=== PATIENT | male | born 1950 | race Caucasian/White ===

== ENCOUNTER 2016-12-29 22:15 | Emergency (ER) | payer MEDICARE, BC ==
[~2016-12-29] VITALS: Ht 170.2 cm; Wt 95.3 kg
[~2016-12-29 22:15] MED LIST: ADULT LOW DOSE81 MG PO; ALBUTEROL-1 PUFF/14. IN; ALDACTONE 25MG25 MG NG; ALDACTONE 25MG25 MG PO; ASPIRIN81 MG PO; ATORVASTATIN CA40 MG PO; ATROVENT H0.017 MG/A IH; ATROVENT IN; AZITHROMYCIN250 M1 PO; BISOPROLOL 5MG T5 MG PO; BUDESONIDE0.25 MG/2 IH; CARVEDILOL12.5 MG PO; CIALIS10 MG PO; CLOPIDOGREL75 M2 PO; COMBIVENT RESPI1 SPR IH; COUGH100 MG/5 M PO; COZAAR 50 MG TA50 MG OR; DIGITEK0.125 MG PO; DIGITEK125 MCG PO; ECOTRIN81 MG PO; EFFIENT10 MG PO; FLEXERIL10 MG PO; FUROSEMIDE 40MG40 M1 PO; FUROSEMIDE40 MG PO; GLIPIZIDE ER 5MG5 MG PO; GLIPIZIDE PO; GLUCOPHAGE500 MG PO; IPRATROPIUM 2.2.5 ML INH; LANOXIN0.125 MG PO; LEVITRA PO; LOSARTAN POTASS50 MG PO; MEDROL 4MG. DOSE4 MG PO; METFORMIN HYDR750 MG PO; METOPROLOL SUCC50 M1 PO; NITROGLYCERIN0.4 MG SL; NITROSTAT0.4 MG SL; OMNICEF 300 MG300 MG PO; ONGLYZA5 MG PO; OXYGEN XX; PANTOPRAZOLE SO40 M1 PO; PERCOGESIC1 TAB PO; PLAVIX 75MG TAB75 MG PO; PREDNISONE 20MG20 MG PO; PRINIVIL10 M1 PO; PROAIR HFA0.09 MG/AC IH; PROTONIX 40MG T40 MG PO; SERTRALINE 100100 MG PO; SOTALOL HCL120 MG PO; SOTALOL PO; SPIRONOLACTONE25 MG NG; SYMBICORT1 AE1 IH; TOPROL XL 50MG50 MG PO; TRAZADONE HYDR100 MG PO; TRAZODONE100 MG PO; TYLENOL ES500 M1 PO; VIAGRA50 MG PO; ZEBETA10 MG PO; ZOCOR40 MG PO; ZOFRAN ODT4 MG PO; ZOLOFT100 MG PO
[2016-12-29 22:55] VITALS: BP 151/86
[2017-01-25] MEDS ORDERED: ONGLYZA5 MG PO (22:59)
[2017-01-25] MEDS ORDERED: SOTALOL HCL160 MG PO (23:00)
[2017-01-25] MEDS ORDERED: LEADER MELATONIN5 MG PO (23:00)
[2017-01-25] MEDS ORDERED: GLIPIZIDE ER 5MG5 MG PO (23:01)
[2017-01-25] MEDS ORDERED: FUROSEMIDE40 MG PO (23:01)
[2017-01-25] MEDS ORDERED: METFORMIN1000 MG PO (23:01)
[2017-01-25] MEDS ORDERED: ASPIR-LOW81 MG PO (23:02)
[2017-01-25] MEDS ORDERED: ACETAMINOPHEN500 M3 PO (23:02)
[2017-01-25] MEDS ORDERED: LOSARTAN POTASS50 MG PO (23:03)
[2017-01-25] MEDS ORDERED: PANTOPRAZOLE SO40 MG PO (23:04)
[2017-01-25] MEDS ORDERED: SERTRALINE 100100 MG PO (23:04)
[2017-01-25] MEDS ORDERED: SYMBICORT1 AE1 IH (23:05)
[2017-01-25] MEDS ORDERED: INCRUSE EL62.5 MCG/A IH (23:06)
[2017-01-25] MEDS ORDERED: ALBUTEROL-1 PUFF/14. IN (23:08)
[2017-01-25] MEDS ORDERED: PROAIR HFA0.09 MG/AC IH (23:08)
[2017-01-27] MEDS ORDERED: DEMADEX20 MG PO (09:13)
[2017-01-27] MEDS ORDERED: ALDACTONE 25MG25 MG PO (09:14)
== END 2016-12-29 22:56 | disposition left against medical advice (07) ==
LOC: ER 22:15
DX: Z53.29 Procedure and treatment not carried out because of patient's decision for other reasons (principal)

== ENCOUNTER 2017-02-08 14:29 | Observation (INO) | payer MEDICARE, BC ==
[~2017-02-08] VITALS: Ht 170.2 cm; Wt 88.6 kg
[~2017-02-08 14:29] MED LIST changes: +ACETAMINOPHEN500 M3 PO; +ASPIR-LOW81 MG PO; +DEMADEX20 MG PO; +INCRUSE EL62.5 MCG/A IH; +LEADER MELATONIN5 MG PO; +METFORMIN1000 MG PO; +PANTOPRAZOLE SO40 MG PO; +SOTALOL HCL160 MG PO
[2017-02-08 14:30] VITALS: BP 112/67
[2017-02-08 14:47] LABS: HEMOGLOBIN 11.7 g/dL (14.1-18.0); LYMPH # 0.9 K/mm3 (0.7-4.5); LYMPH % 10.9 % (10-50)
--- NOTE | 2017-02-08 14:48 | Emergency Room Report ---
History of Present Illness Time Seen by 1430 Presenting Problem in Triage Pt arrived:Wheelchair Presenting Problem:NAVIGATED OWN W/C INTO ED. 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 N Clinical Suspician of Infection? N Mental Status: 1 - Regular (Normal Baseline) Sepsis Risk:Low Sepsis Risk Have you (or family members/close friends) recently traveled outside the [place]? N If Yes, where/when: Have you had exposure to infectious disease within the past month? N TB? Other? Specify: Source patient, RN notes reviewed, family Exam Limitations no limitations Comment This is a 67-year-old male with a past medical history significant for hypertension, hyperlipidemia, chronic obstructive pulmonary disease, coronary artery disease who presents to the emergency department for an episode of sternal nonradiating chest pain that occurred less than 1 hour ago. It occurred while he was at rest in the doctor's office. He was seeing his primary care provider for a routine checkup. He has not had any increase in cough or vomiting over the last several days. However when he was in the office today he became diaphoretic and nauseous with this chest pain. He took a subungual nitroglycerin and his symptoms have now resolved. He denies any current shortness of air. No recent fevers. Currently chest pain-free. ALLERGIES Coded Allergies: Sulfa (Sulfonamide Antibiotics) (Intermediate, I-RASH 02/08/17) fluticasone (From ADVAIR DISKUS) (Mild, NA-NAUSEA/VOMITING 02/08/17) salmeterol (From ADVAIR DISKUS) (Mild, NA-NAUSEA/VOMITING 02/08/17) Home Medications Active Scripts TORSEMIDE (DEMADEX 20MG) 40 MG PO DAILY 30 Days Ref 5 Prov: 01/27/17 Spironolactone (Aldactone) 25 MG PO BID 30 Days Ref 5 Prov: 04/05/17 Reported Medications SAXAGLIPTIN HCL (Onglyza) 5 MG PO QHS SOTALOL HCL (Sotalol) 160 MG PO BID METFORMIN HCL (Metformin) 1,000 MG PO BID GLIPIZIDE (Glipizide ER) 5 MG PO DAILY Losartan Potassium (Losartan 50MG) 50 MG PO DAILY Pantoprazole Sodium (Pantoprazole 40MG) 40 MG PO DAILY Sertraline Hydrochloride (Sertraline 100MG) 100 MG PO DAILY BUDESONIDE/FORMOTEROL FUMARATE (Symbicort 160-4.5 Mcg Inhaler) 2 PUFF IH BID UMECLIDINIUM BROMIDE (Incruse Ellipta) 1 PUFF IH DAILY Melatonin 5 MG PO DAILY ASPIRIN (Aspirin) 81 MG PO DAILY Acetaminophen (Acetaminophen Extra Strength) 500 MG PO Q6HP PRN PAIN Albuterol Sulfate (Proair Hfa) 1 PUFF IH Q6HP PRN COPD Device (Oxygen (Concentrator)) 1 UNIT XX UD CLOPIDOGREL BISULFATE (Clopidogrel) 75 MG PO DAILY #90 History Medical History General CAD? Yes Angina: Yes [place]: Yes Hypertension? Yes Hyperlipidemia? Yes CHF? Yes DVT? Yes PE? Yes COPD? Yes Asthma? No Anemia? No GERD? No Gastric ulcers? No GI Bleed? No Hernia? No Thyroid Problems? No Hypothyroidism? No CVA? No Seizures? No Diabetes? Yes Insulin Dependent: No Insulin Pump: No Home FSBS? No Renal Insuffiency? No End Stage Renal Disease? No UTI? No Stones? No BPH? No GB Disease: No Nephritic Syndrome? No Asplenia? No Hepatitis? No Sickle Cell Disease? No Arthritis? Yes Migraines? No Cataracts? No Glaucoma? No MRSA? No HIV? No TB? No Anxiety? No Depression? No Cancer? Yes Site: SKIN More? No Immunization Hx Ped.Immunizations UTD Yes DT/Tetanus Unknown Flu 2015-FSN Pneumonia Received In Past Surgical Hx Previous Surgery?Y BACK SURGERY CARPAL TUNNEL-RIGHT VASECTOMY 07/09 CARDIAC STENT 12/09 CARDIAC STENTS PROSTATE SX 5 STENTS Family History Family Hx Diabetes Yes CAD Yes Hypertension Yes Hyperlipidemia Yes Cancer No TB No Social History Smoking Hx Smoker: Never Smoker Tobacco: No Type N/A Are you/the child exposed to second-hand smoke: No Alcohol Alcohol: No Review of Systems All Other Systems Reviewed and Negative Physical Exam Vital Signs Vital Signs Date Time Temp Pulse Resp B/P Pulse O2 O2 Flow FiO2 Ox Delivery Rate 02/08 1458 81 02/08 1430 98.3 7 18 112/67 91 4 General Appearance normal appearance, WD/WN Neck normal inspection, non-tender, supple, full range of motion Respiratory Status Yes: chest symmetrical, non tender chest. No: respiratory distress. Lung Sounds bilateral: normal breath sounds, lungs clear. Cardiovascular normal exam, regular rate/rhythm, no peripheral edema, no gallop, no JVD, no murmur, no rub, normal peripheral pulses Gastrointestinal normal bowel sounds, normal exam, non tender Extremities non-tender, normal range of motion, normal inspection Neurologic alert, no motor/sensory deficits, oriented x 3 Skin intact, normal color, warm/dry Medical Decision Making LABS/Meds/Orders Pt receiving controlled substance in ED? No Results/Orders Laboratory Tests 02/08/17 1640: Troponin I < 0.17 H 02/08/17 1439: Sodium 138, Potassium 4.9, Chloride 96 L, Carbon Dioxide 36 H, BUN 38 H, Creatinine 1.7 H, Estimated Creat Clear 52, Estimated GFR (MDRD) 40, Glucose 256 H, Calcium 9.0, Total Bilirubin 0.4, AST 11 L, ALT 22, Alkaline Phosphatase 115, Creatine Kinase 27 L, CK-MB (CK-2) Rel Index 2.6, CK and CKMB Interp 0.7, Troponin I < 0.02, Total Protein 7.9, Albumin 3.9, Globulin 4.0 H, Albumin/Globulin Ratio 1.0 L, WBC 8.4, RBC 3.65 L, Hgb 11.7 L, Hct 36.2 L, MCV 99.0 H, RDW 13.1, Plt Count 289, MPV 6.4 L, Gran % 83.3 H, Gran # 7.0, Lymphocytes % 10.9, Monocytes % 4.0, Eosinophils % 1.5, Basophils % 0.2, Lymphocytes # 0.9, Monocytes # 0.3, Eosinophils # 0.1, Basophils # 0.0, PUBS MCHC 32.3, MCH 31.9 H Current Medication Orders Sig/Martin Start time Last Medication Dose Route Stop Time Status Admin Aspirin 243 MG ONCE ONE 02/08 1500 DC 02/08 PO 02/08 1501 1457 Aspirin 0 .STK-MED ONE 02/08 1456 DC .ROUTE Sodium Chloride 10 ML PRN PRN 02/08 1445 AC IV 02/09 1436 Orders Procedure Date/time Status Decision to admit 02/08 1722 Active TROPONIN I 02/08 1545 Complete ELECTROCARDIOGRAM REQUEST 02/08 1438 Active CHEST-PORTABLE 02/08 1438 Active IV SALINE LOCK 02/08 1438 Active OXYGEN PER NURSE 02/08 1438 Active MOTO MIX OPERATOR 02/08 1438 Active CBC WITH AUTO DIFF 02/08 1438 Complete CARDIAC ENZYMES 02/08 1438 Complete CHEM 12 PROFILE 02/08 1438 Complete 12 LEAD EKG-LYLE (INITIAL) 02/08 1430 Active CM/EKG CM/EKG EKG rate (78), NSR, no evid. of ischemic chgs, normal QRS, normal NV, long QT XRAY/CT/US XRAY/CT/US XRAY chest XR interpretation by reviewed by me Xray Results normal/NAD Departure Departure Disposition Still a Patient Clinical Impression Primary Impression: NSTEMI (non-ST elevated myocardial infarction) Condition STABLE Referrals Alexis Thorpe MD (Family) ED Critical Care Critical Care Yes Time spent 30-74 min Vital system(s) involved: Circulatory Failure I was present at bedside for Coordinating pt's care, Interpreting EKGs/Strips , During my initial exam, Reviewing lab results, Reviewing old records, Discussing pt condition, For re-examinations, Examining radiographs If Critical Care minutes are documented, the time involved in the performance of seperately reportable procedures was not counted toward critical care time documented. I directly delivered medical care to this critically ill and/or injured patient. Timely evaluation and treatment was necessary to address the significant organ system(s) dysfunction present in this patient. Comments Patient remains chest pain-free while in the emergency department. Electrocardiogram shows no signs of acute ischemia. He is given 3 more baby aspirin as he arty had 1 baby aspirin today. Initial troponin is negative. He is seen by cardiology PA, Aroldo Galvan, who suggests repeat troponin and discharge home if negative. Unfortunately his second troponin is elevated. I contacted Aroldo again and he recommended Lovenox which I have ordered in the emergency department and admission for further evaluation. I discussed his case with Dr. Rollins as well who will admit for further management. at [id number]
[2017-02-08 15:11] LABS: BUN 38 mg/dL (7-18)
[2017-02-08 15:13] LABS: GFR (ESTIMATED) 40 ML/MIN (>60)
[2017-02-08 18:05] VITALS: BP 121/60
[2017-02-08] MEDS ORDERED: COMBIVENT RESPI1 SPR IH (18:17)
[2017-02-08 18:55] VITALS: BP 110/50
[2017-02-08 19:55] VITALS: BP 113/55
[2017-02-08 20:05] VITALS: BP 113/55
--- NOTE | 2017-02-08 20:51 | HISTORY AND PHYSICAL REPORT ---
Demographics: Admit date: 02/08/17 Chief complaint: Chest pain PRIMARY DIAGNOSIS: NSTEMI Allergies: Coded Allergies: Sulfa (Sulfonamide Antibiotics) (Intermediate, I-RASH 02/08/17) fluticasone (From ADVAIR DISKUS) (Mild, NA-NAUSEA/VOMITING 02/08/17) salmeterol (From ADVAIR DISKUS) (Mild, NA-NAUSEA/VOMITING 02/08/17) History of present illness: History of present illness: 67-year-old white male with long history of coronary artery disease, recentcatheter-based intervention for chest pain with non-syncopal disease and ongoing COPD with pulmonary hypertensionwho presented to my office today for routine followup after his recent admission left heart catheterization. In the office he began to have substernal chest pain associate with nausea and retching. He was transferred to the emergency department where serial enzymes showed elevation in troponin levels from baseline after the second reading and he was admitted to hospital with diagnoses of non-stemi. Past medical history: Family HX Diabetes Yes CAD Yes Hypertension Yes Hyperlipidemia Yes Cancer No TB No Immunization HX Ped.Immunizations UTD Yes DT/Tetanus Unknown Flu 2015-FSN Pneumonia Received In Past TB Test in last year No General CAD? Yes Angina: Yes ND: Yes Hypertension? Yes Hyperlipidemia? Yes CHF? Yes DVT? Yes PE? Yes COPD? Yes Asthma? No Anemia? No GERD? No Gastric ulcers? No GI Bleed? No Hernia? No Thyroid Problems? No Hypothyroidism? No CVA? No Seizures? No Diabetes? Yes Insulin Dependent: No Insulin Pump: No Home FSBS? No Renal Insuffiency? No UTI? No Stones? No BPH? No GB Disease: No Nephritic Syndrome? No Asplenia? No Hepatitis? No Sickle Cell Disease? No Arthritis? Yes Migraines? No Cataracts? No Glaucoma? No MRSA? No HIV? No TB? No Anxiety? No Depression? No Cancer? Yes Site: SKIN More? No Past Surgical HX Previous Surgery?Y BACK SURGERY CARPAL TUNNEL-RIGHT VASECTOMY 07/09 CARDIAC STENT 12/09 CARDIAC STENTS PROSTATE SX 5 STENTS Current home meds: Active Scripts TORSEMIDE (DEMADEX 20MG) 40 MG PO DAILY 30 Days Ref 5 Prov: 01/27/17 Spironolactone (Aldactone) 25 MG PO BID 30 Days Ref 5 Prov: 01/27/17 Reported Medications SAXAGLIPTIN HCL (Onglyza) 5 MG PO QHS SOTALOL HCL (Sotalol) 160 MG PO BID METFORMIN HCL (Metformin) 1,000 MG PO BID GLIPIZIDE (Glipizide ER) 5 MG PO DAILY Losartan Potassium (Losartan 50MG) 50 MG PO DAILY Pantoprazole Sodium (Pantoprazole 40MG) 40 MG PO DAILY Sertraline Hydrochloride (Sertraline 100MG) 100 MG PO DAILY BUDESONIDE/FORMOTEROL FUMARATE (Symbicort 160-4.5 Mcg Inhaler) 2 PUFF IH BID UMECLIDINIUM BROMIDE (Incruse Ellipta) 1 PUFF IH DAILY ALBUTEROL/IPRATROPIUM (Combivent Respimat Inhal [place]) 1 PUFF IH BID #4 Melatonin 5 MG PO DAILY ASPIRIN (Aspirin) 81 MG PO DAILY Acetaminophen (Acetaminophen Extra Strength) 500 MG PO Q6HP PRN PAIN Albuterol Sulfate (Proair Hfa) 1 PUFF IH Q6HP PRN COPD Device (Oxygen (Concentrator)) 1 UNIT XX UD CLOPIDOGREL BISULFATE (Clopidogrel) 75 MG PO DAILY #90 Social Hx: Smoking HX Tobacco No Type N/A Are you/the child exposed to second-hand smoke: No Alcohol Alcohol: No Hx of Drug Use Drug Use? No Patien't marital status is single Review of systems: Constitutional No: chills, diaphoresis, fever. Ears, Nose, Mouth, Throat No no symptoms reported Respiratory shortness of breath, SOB with excertion. Cardiovascular see HPI Gastrointestinal/Abdominal see HPI Genitourinary No: see HPI. Musculoskeletal No: no symptoms reported. Neurological No: see HPI. Exam: Lab data for last 24 hours: Laboratory Tests 02/08/17 1930: Troponin I < 0.02 02/08/17 1640: Troponin I < 0.17 H 02/08/17 1439: Sodium 138, Potassium 4.9, Chloride 96 L, Carbon Dioxide 36 H, BUN 38 H, Creatinine 1.7 H, Estimated Creat Clear 52, Estimated GFR (MDRD) 40, Glucose 256 H, Calcium 9.0, Total Bilirubin 0.4, AST 11 L, ALT 22, Alkaline Phosphatase 115, Creatine Kinase 27 L, CK-MB (CK-2) Rel Index 2.6, CK and CKMB Interp 0.7, Troponin I < 0.02, Total Protein 7.9, Albumin 3.9, Globulin 4.0 H, Albumin/Globulin Ratio 1.0 L, WBC 8.4, RBC 3.65 L, Hgb 11.7 L, Hct 36.2 L, MCV 99.0 H, RDW 13.1, Plt Count 289, MPV 6.4 L, Gran % 83.3 H, Gran # 7.0, Lymphocytes % 10.9, Monocytes % 4.0, Eosinophils % 1.5, Basophils % 0.2, Lymphocytes # 0.9, Monocytes # 0.3, Eosinophils # 0.1, Basophils # 0.0, PUBS MCHC 32.3, MCH 31.9 H Admission vital signs: 1ST Vital Signs Result Date Time Pulse Ox 91 02/08 1430 B/P 112/67 02/08 1430 O2 Flow Rate 4 02/08 1430 Temp 98.3 02/08 1430 Pulse 7 02/08 1430 Resp 18 02/08 1430 O2 Delivery OXYGEN 02/08 1801 Additional information: Alert, in mild distress. Lungs are clear, heart rate regular with previously noted murmur. On oxygen. Perfusion is intact. Patient actively vomiting in the office Plan: Problem List 1. Non-STEMI (non-ST elevated myocardial infarction) 2. Cardiomyopathy 3. Acute dyspnea Plan: Admit to hospital.Follow serial enzymes. Cardiology reevaluation is indicated. at 2050
--- NOTE | 2017-02-08 21:59 | PHARMACY CLINIC NOTE ---
Patient Demographics Patient Demographics Admission date: 02/08/17 Date: 02/08/17 Time: 2157 Allergies Coded Allergies: Sulfa (Sulfonamide Antibiotics) (Intermediate, I-RASH 02/08/17) fluticasone (From ADVAIR DISKUS) (Mild, NA-NAUSEA/VOMITING 02/08/17) salmeterol (From ADVAIR DISKUS) (Mild, NA-NAUSEA/VOMITING 02/08/17) HEIGHT- FT: 5 IN: 7.00 K.593 VTE General Information Labs: Laboratory Tests 02/08 1439 Hematology Hgb (14.1 - 18.0 g/dL) 11.7 L Hct (42.0 - 52.0 %) 36.2 L Plt Count (142 - 424 K/mm3) 289 Disclaimer The following section includes nursing documentation that has been pulled in for pharmacy review. Patient's VTE score: 3 Patient's VTE Risk: LOW RISK Clinical trial participant? No VTE prophylaxis [id number] VTE prophylaxis ordered? Yes Type of prophylaxis/treatment: JT Mcpherson at [phone]
[2017-02-08 23:49] VITALS: BP 150/53
[2017-02-09 04:33] VITALS: BP 124/61
--- NOTE | 2017-02-09 04:50 | RADIOLOGY REPORT PS360 ---
CHEST-PORTABLE HISTORY: Chest pain CP ORDERING PHYSICIAN: Artie Pink MD PATIENT AGE: 67 years COMPARISON: 01/25/2017 FINDINGS: Mild cardiomegaly with mild pulmonary venous congestion. The mary are somewhat prominent. Mild hyperinflation. No lobar consolidation or collapse. IMPRESSION: Mild CHF with COPD.
[2017-02-09 07:11] LABS: LYMPH # 1.3 K/mm3 (0.7-4.5); LYMPH % 18.6 % (10-50)
[2017-02-09 07:17] LABS: BUN 33 mg/dL (7-18); GFR (ESTIMATED) 46 ML/MIN (>60)
--- NOTE | 2017-02-09 07:49 | CONSULT NOTE ---
Standard Demographics Patient Demo Date of Consultation: 02/09/17 Referring Provider: Alexis Goel MD Reason for Consultation: Elevated troponin PRIMARY DIAGNOSIS: NSTEMI Problem list Problem list: 1. Coronary artery disease A. History of 2 coronary stents to the RIGHT coronary artery 1998 B. Coronary disease with stents to left anterior descending in November 2014 and LEFT main in June 2015 C. Cardiomyopathy with EF of 35-40% with resolution of cardiomyopathy by echocardiogram 12/2015 D. Cardiac cath in November 2015 showing patent stents E. Right and left heart cath, 01/2017, Moderate disease of Ramus and LAD with severe pulmonary HTN (Pulmonary artery occlusion pressure of 45 mm Hg). Medical therapy recommended with maximization of diuretics. 2. Diabetes mellitus 3. Erectile dysfunction secondary to medical therapy and peripheral vascular disease 4. Pulmonary hypertension A. RIGHT heart cath, June 2015 showing improvement of pulmonary artery pressure from 50 mmHg down to 15 mmHg due to diuretic therapy 5. History of prostate cancer surgery in [place] 6. Ongoing tobacco use 7. Multiple surgeries including back surgery, vasectomy and carpal tunnel surgery. 8. History of nonsustained ventricular tachycardia, controlled on sotalol therapy. History of present illness: History of present illness: 67-year-old white male with long history of coronary artery disease, recentcatheter-based intervention for chest pain with non-syncopal disease and ongoing COPD with pulmonary hypertensionwho presented to my office today for routine followup after his recent admission left heart catheterization. In the office he began to have substernal chest pain associate with nausea and retching. He was transferred to the emergency department where serial enzymes showed elevation in troponin levels from baseline after the second reading and he was admitted to hospital with diagnoses of non-stemi. The above per Dr. Goel. Patient was seen in the emergency department yesterday due to the above symptoms. He described his chest pain as brief and sharp in duration and left- sided. Patient became diaphoretic after taking sublingual nitroglycerin in order to try and treat his chest pains. Follow-up troponins after admission have been within the normal range. He denies any chest pain, pressure, tightness or shortness of breath exacerbation overnight. Cardiology consulted for further recommendations. Past Medical History: General: Hypertension Yes CVA No Seizures No TB No COPD Yes Asthma No Diabetes Yes Insulin Dependent No Insulin Pump No Angina Yes ME Yes Hyperlipidemia Yes Cancer Yes Ulcers No MRSA No GB Disease No Other ENLARGED PROSTATE Past Surgical HX: Previous Surgery?Y BACK SURGERY CARPAL TUNNEL-RIGHT VASECTOMY 07/09 CARDIAC STENT 2 CARDIAC STENTS PROSTATE SX 5 STENTS Allergies Coded Allergies: Sulfa (Sulfonamide Antibiotics) (Intermediate, I-RASH 02/08/17) fluticasone (From ADVAIR DISKUS) (Mild, NA-NAUSEA/VOMITING 02/08/17) salmeterol (From ADVAIR DISKUS) (Mild, NA-NAUSEA/VOMITING 02/08/17) Home medications: Active Scripts TORSEMIDE (DEMADEX 20MG) 40 MG PO DAILY 30 Days Ref 5 Prov: 01/27/17 Spironolactone (Aldactone) 25 MG PO BID 30 Days Ref 5 Prov: 01/27/17 Reported Medications CLOPIDOGREL BISULFATE (Clopidogrel) 75 MG PO DAILY #90 TAB SAXAGLIPTIN HCL (Onglyza) 5 MG PO QHS Melatonin 5 MG PO QHS SOTALOL HCL (Sotalol) 160 MG PO BID METFORMIN HCL (Metformin) 1,000 MG PO BID GLIPIZIDE (Glipizide ER) 5 MG PO DAILY Aspirin (Aspir-Low) 81 MG PO DAILY Acetaminophen (Acetaminophen Extra Strength) 500 MG PO Q6HP PRN PAIN Losartan Potassium (Losartan 50MG) 50 MG PO DAILY Pantoprazole Sodium (Pantoprazole 40MG) 40 MG PO DAILY Sertraline Hydrochloride (Sertraline 100MG) 100 MG PO DAILY BUDESONIDE/FORMOTEROL FUMARATE (Symbicort 160-4.5 Mcg Inhaler) 2 PUFF IH BID UMECLIDINIUM BROMIDE (Incruse Ellipta) 1 PUFF IH DAILY Albuterol Sulfate (Proair Hfa) 1 PUFF IH Q6HP PRN BREATHING ALBUTEROL/IPRATROPIUM (Combivent Respimat Inhal [place]) 1 PUFF IH QID #4 Device (Oxygen (Concentrator)) 1 UNIT XX UD Current Medications: Current Medications Enoxaparin Sodium 90 MG DAILY SC Nicotine 21 MG DAILYP PRN TD Enoxaparin Sodium 0 .STK-MED ONE SC (DC) Enoxaparin Sodium 90 MG ONCE ONE SC (DC) Aspirin 243 MG ONCE ONE PO (DC) Aspirin 0 .STK-MED ONE .ROUTE (DC) Sodium Chloride 10 ML PRN PRN IV Immunization HX Ped.Immunizations UTD Yes DT/Tetanus Unknown Flu 2016-FSN Pneumonia RECEIVED IN PAST TB Test in last year No Family history Family HX Family Hx Insignificant No Diabetes Yes CAD Yes Hypertension Yes Hyperlipidemia Yes Cancer No TB No Social Hx: Smoking HX Tobacco No Type N/A Are you/the child exposed to second-hand smoke: No Alcohol Alcohol: No Hx of Drug Use Drug Use? No Review of systems: Constitutional weakness. Respiratory see HPI, shortness of breath, SOB with excertion. Cardiovascular see HPI, chest pain Gastrointestinal/Abdominal see HPI, nausea, vomiting Genitourinary No: no symptoms reported. Musculoskeletal back pain, joint pain. Neurological No: no symptoms reported. Exam: Admission Vital Signs: 1ST Vital Signs Result Date Time Pulse Ox 91 02/08 1430 B/P 112/67 02/08 1430 O2 Flow Rate 4 02/08 1430 Temp 98.3 02/08 1430 Pulse 7 02/08 1430 Resp 18 02/08 1430 O2 Delivery OXYGEN 02/08 1801 Last Vital Signs: Vital Signs Result Date Time O2 Flow Rate 4 02/09 0630 Pulse Ox 99 02/09 0433 B/P 124/61 02/09 0433 O2 Delivery OXYGEN 02/09 0433 Temp 97.8 02/09 0433 Pulse 69 02/09 0433 Resp 20 02/09 0433 Exam General appearance: alert, awake, no acute distress Neck: no JVD Cardiovascular: regular rate & rhythm Respiratory: diminished breath sounds ABD: soft, no tenderness Extremities: moves all, no peripheral edema Neuro: alert, intact, oriented Laboratory data: Laboratory Tests 02/09/17 0624: Sodium 139, Potassium 4.2, Chloride 98, Carbon Dioxide 40 H, BUN 33 H, Creatinine 1.5 H, Estimated Creat Clear 58, Estimated GFR (MDRD) 46, Glucose 135 H, Calcium 9.1, Troponin I < 0.02, WBC 7.0, RBC 3.37 L, Hgb 11.0 L, Hct 33.2 L, MCV 98.7 H, RDW 13.0, Plt Count 263, MPV 5.4 L, Gran % 74.7, Gran # 5.2, Lymphocytes % 18.6, Monocytes % 5.3, Eosinophils % 1.1, Basophils % 0.3, Lymphocytes # 1.3, Monocytes # 0.4, Eosinophils # 0.1, Basophils # 0.0, PUBS MCHC 33.2, MCH 32.7 H 02/09/17 0015: Troponin I 0.02 02/08/17 1930: Troponin I < 0.02 02/08/17 1640: Troponin I < 0.17 H 02/08/17 1439: Sodium 138, Potassium 4.9, Chloride 96 L, Carbon Dioxide 36 H, BUN 38 H, Creatinine 1.7 H, Estimated Creat Clear 52, Estimated GFR (MDRD) 40, Glucose 256 H, Calcium 9.0, Total Bilirubin 0.4, AST 11 L, ALT 22, Alkaline Phosphatase 115, Creatine Kinase 27 L, CK-MB (CK-2) Rel Index 2.6, CK and CKMB Interp 0.7, Troponin I < 0.02, Total Protein 7.9, Albumin 3.9, Globulin 4.0 H, Albumin/Globulin Ratio 1.0 L, WBC 8.4, RBC 3.65 L, Hgb 11.7 L, Hct 36.2 L, MCV 99.0 H, RDW 13.1, Plt Count 289, MPV 6.4 L, Gran % 83.3 H, Gran # 7.0, Lymphocytes % 10.9, Monocytes % 4.0, Eosinophils % 1.5, Basophils % 0.2, Lymphocytes # 0.9, Monocytes # 0.3, Eosinophils # 0.1, Basophils # 0.0, PUBS MCHC 32.3, MCH 31.9 H Plan: Assessment: 1. Elevated troponin with concern for NSTEMI. Likely related to demand ischemia from severe pulmonary hypertension. Currently asymptomatic. 2. Known coronary disease, clinically stable on medical therapy. 3. Severe pulmonary hypertension 4. History of nonsustained ventricular tachycardia controlled on sotalol therapy Recommendations: 1. Obtain a BNP 2. No planned intervention for CAD. 3. Recommend consult Dr. Flood for recommendations regarding severe pulmonary hypertension. Consider Right heart cath to follow up on pulmonary artery pressure and response to change in diuretic therapy if indicated. at 1452
[2017-02-09 07:52] VITALS: BP 125/73
[2017-02-09 08:24] VITALS: BP 125/73
--- NOTE | 2017-02-09 08:44 | ACUTE CARE PROGRESS NOTE (QUA) ---
Progress Notes Subjective Date 02/09/17 Time 0750 Note Patient is sitting on the side of bed. No further chest pain through the night. Cardiology was consulted who feels symptoms are likely related to his severe pulmonary hypertension. Alert and oriented x 3. Rate and rhythm regular. No edema. Pulses 2+ bilaterally. LS diminished throughout. Patient/family reports: feeling better Nursing reports: no complaints Objective Findings Last VS-Temp:98.0 B/P:125/73 Pulse:78 Resp:20 SaO2:95 OXYGEN Last weight lbs:195 oz:5 K.593 Method:Bed Scales Reviewed: medications, vital signs, lab results Assessment/Plan Problem List 1. Cardiomyopathy 2. Acute dyspnea 3. Chest pain Patient condition Improving Plan: initiate discharge plan This inpt stay is expected to cross 2 MNs from start of care No Comments: Patient has an isolated elevated troponin and was NOT positive for NSTEMI. Symptoms are likely related to his severe pulmonary HTN. Will consult Dr. Flood. May d/c later today if cleared by Dr. Flood for outpatient FU. at 0844
--- NOTE | 2017-02-09 14:13 | CONSULT NOTE ---
Standard Demographics Patient Demo Date of Consultation: 02/09/17 Referring Provider: Alexis Goel MD Reason for Consultation: COPD exacerbation, chest pain PRIMARY DIAGNOSIS: COPD exacerbation due to left heart failure (diastolic) Allergies: Coded Allergies: Sulfa (Sulfonamide Antibiotics) (Intermediate, I-RASH 02/08/17) fluticasone (From ADVAIR DISKUS) (Mild, NA-NAUSEA/VOMITING 02/08/17) salmeterol (From ADVAIR DISKUS) (Mild, NA-NAUSEA/VOMITING 02/08/17) History of present illness: History of present illness: Chief complaint: "I couldn't breathe." Mr. Mathis is a 67-year-old man who has very severe chronic obstructive pulmonary disease and coronary artery disease complicated by congestive heart failure causing pulmonary hypertension. I initially saw him in August because of progressive shortness of breath over several years and ordered pulmonary function studies and a CT scan of the chest. He came back in late October to review the results and we added Incruse to Symbicort and Combivent to see if that would ease dyspnea. We also ordered pulmonary rehabilitation. In the interim, he had been hospitalized earlier this month for chest pain and increased shortness of breath associated with an apparent NSTEMI. A RIGHT and LEFT heart catheterization showed widely patent stents and no acute occlusion. Ejection fraction was 50 percent and the LEFT ventricular end-diastolic pressure was 40. He was diuresed and improved but came back in to Dr. Chirinos's office yesterday for a routine follow-up visit. Mr. Mathis told me that he had been feeling relatively well since the initial discharge and the severe shortness of breath was at least stable. While in the office, he suddenly developed substernal chest pain followed by nausea and profound sweating. He took a sublingual nitroglycerin and the symptoms subsided. He was admitted here and, based upon laboratory data and an electrocardiogram, it does not appear that he had a significant coronary event. He feels much better and is ready to go home. At baseline, he is breathless with ADL's. Past medical history: Family HX Diabetes Yes CAD Yes Hypertension Yes Hyperlipidemia Yes Cancer No TB No Immunization HX Ped.Immunizations UTD Yes DT/Tetanus Unknown Flu 2015-FSN Pneumonia Received In Past TB Test in last year No General CAD? Yes Angina: Yes AL: Yes Hypertension? Yes Hyperlipidemia? Yes CHF? Yes DVT? Yes PE? Yes COPD? Yes Asthma? No Anemia? No GERD? No Gastric ulcers? No GI Bleed? No Hernia? No Thyroid Problems? No Hypothyroidism? No CVA? No Seizures? No Diabetes? Yes Insulin Dependent: No Insulin Pump: No Home FSBS? No Renal Insuffiency? No UTI? No Stones? No BPH? No GB Disease: No Nephritic Syndrome? No Asplenia? No Hepatitis? No Sickle Cell Disease? No Arthritis? Yes Migraines? No Cataracts? No Glaucoma? No MRSA? No HIV? No TB? No Anxiety? No Depression? No Cancer? Yes Site: SKIN More? No Past Surgical HX Previous Surgery?Y BACK SURGERY CARPAL TUNNEL-RIGHT VASECTOMY 07/09 CARDIAC STENT 12/09 CARDIAC STENTS PROSTATE SX 5 STENTS Current home meds: Active Scripts TORSEMIDE (DEMADEX 20MG) 40 MG PO DAILY 30 Days Ref 5 Prov: 01/27/17 Spironolactone (Aldactone) 25 MG PO BID 30 Days Ref 5 Prov: 01/27/17 Reported Medications CLOPIDOGREL BISULFATE (Clopidogrel) 75 MG PO DAILY #90 TAB SAXAGLIPTIN HCL (Onglyza) 5 MG PO QHS Melatonin 5 MG PO QHS SOTALOL HCL (Sotalol) 160 MG PO BID METFORMIN HCL (Metformin) 1,000 MG PO BID GLIPIZIDE (Glipizide ER) 5 MG PO DAILY Aspirin (Aspir-Low) 81 MG PO DAILY Acetaminophen (Acetaminophen Extra Strength) 500 MG PO Q6HP PRN PAIN Losartan Potassium (Losartan 50MG) 50 MG PO DAILY Pantoprazole Sodium (Pantoprazole 40MG) 40 MG PO DAILY Sertraline Hydrochloride (Sertraline 100MG) 100 MG PO DAILY BUDESONIDE/FORMOTEROL FUMARATE (Symbicort 160-4.5 Mcg Inhaler) 2 PUFF IH BID UMECLIDINIUM BROMIDE (Incruse Ellipta) 1 PUFF IH DAILY Albuterol Sulfate (Proair Hfa) 1 PUFF IH Q6HP PRN BREATHING ALBUTEROL/IPRATROPIUM (Combivent Respimat Inhal [place]) 1 PUFF IH QID #4 Device (Oxygen (Concentrator)) 1 UNIT XX UD Social Hx: Pt is a non-smoker (ex smoker) Patient uses alcohol never Patien't marital status is (Has a girlfriend) Patient's support system is fair Pt uses illicit drugs? No Comment: Mr. 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 He is but his girlfriend of 3 years lives with him now. She is 63 and suffers from a persistent cough. He has 2 children, 4 grandchildren, and 3 great grandchildren, all of whom are healthy, he believes. "I don't see them much." Mr. Mathis lives in an apartment and has a few stairs to climb which is difficult for him. He has a cat and a dog. He seems fairly uatsdin although he does not belong to any formal restoration. He enjoys playing Solitaire on the computer and watching television. Standard Review of Systems General no symptoms reported, see HPI, diaphoresis, malaise. No: chills, fever, weakness, other. Psychiatric No: no symptoms reported. Comment: Apart from what is mentioned in the present illness, the rest of a 14-point review of systems is negative. I do want to stress that he does suffer from some anxiety and depression, especially because he cannot do very much anymore. Exam: Lab data for last 24 hours: Laboratory Tests 02/09/17 0815: POC Glucose 158 H 02/09/17 0624: Sodium 139, Potassium 4.2, Chloride 98, Carbon Dioxide 40 H, BUN 33 H, Creatinine 1.5 H, Estimated Creat Clear 58, Estimated GFR (MDRD) 46, Glucose 135 H, Calcium 9.1, Troponin I < 0.02 02/09/17 0624: B-Natriuretic Peptide 32, WBC 7.0, RBC 3.37 L, Hgb 11.0 L, Hct 33.2 L, MCV 98.7 H, RDW 13.0, Plt Count 263, MPV 5.4 L, Gran % 74.7, Gran # 5.2, Lymphocytes % 18.6, Monocytes % 5.3, Eosinophils % 1.1, Basophils % 0.3, Lymphocytes # 1.3, Monocytes # 0.4, Eosinophils # 0.1, Basophils # 0.0, PUBS MCHC 33.2, MCH 32.7 H 02/09/17 0015: Troponin I 0.02 02/08/17 1930: Troponin I < 0.02 02/08/17 1640: Troponin I < 0.17 H 02/08/17 1439: Sodium 138, Potassium 4.9, Chloride 96 L, Carbon Dioxide 36 H, BUN 38 H, Creatinine 1.7 H, Estimated Creat Clear 52, Estimated GFR (MDRD) 40, Glucose 256 H, Calcium 9.0, Total Bilirubin 0.4, AST 11 L, ALT 22, Alkaline Phosphatase 115, Creatine Kinase 27 L, CK-MB (CK-2) Rel Index 2.6, CK and CKMB Interp 0.7, Troponin I < 0.02, Total Protein 7.9, Albumin 3.9, Globulin 4.0 H, Albumin/Globulin Ratio 1.0 L, WBC 8.4, RBC 3.65 L, Hgb 11.7 L, Hct 36.2 L, MCV 99.0 H, RDW 13.1, Plt Count 289, MPV 6.4 L, Gran % 83.3 H, Gran # 7.0, Lymphocytes % 10.9, Monocytes % 4.0, Eosinophils % 1.5, Basophils % 0.2, Lymphocytes # 0.9, Monocytes # 0.3, Eosinophils # 0.1, Basophils # 0.0, PUBS MCHC 32.3, MCH 31.9 H Admission vital signs: 1ST Vital Signs Result Date Time Pulse Ox 91 02/08 1430 B/P 112/67 02/08 1430 O2 Flow Rate 4 02/08 1430 Temp 98.3 02/08 1430 Pulse 7 02/08 1430 Resp 18 02/08 1430 O2 Delivery OXYGEN 02/08 1801 Exam General appearance: alert Additional information: On physical examination, Mr. Mathis is an articulate, overweight, breathless-appearing man who was alert and oriented. He was on oxygen at about 3 liters per minute when I saw him. EYES: Extraocular movements full; sclerae clear; conjunctivae slightly pale; PERRL. ENMT: Nasal mucosa unremarkable; oropharynx is Mallampati IV, and there are no mucosal lesions. NECK: Carotids 2+ without bruits; no adenopathy; thyroid not palpable. JVD 2 cm above the clavicale sitting. CHEST: Slight dorsal kyphosis; symmetrical expansion; hyperresonance by percussion bilaterally; prolonged expiratory phase of ventilation with no expiratory wheezes. No crackles. HEART: PMI not felt; regular rhythm; no murmur or gallop. ABDOMEN: Quite protuberant; bowel sounds present; soft and mild tenderness, especially over a ventral hernia. No obvious masses. : No flank tenderness. SKIN: Sun changes on the face and neck. NEUROLOGICAL: Grossly intact but I did not check ankle reflexes. EXTREMITIES: Trace lower leg edema. No clubbing. Plan: Problem List 1. Cardiomyopathy 2. Acute dyspnea 3. Chest pain 4. COPD (chronic obstructive pulmonary disease) 5. Acute exacerbation of chronic obstructive pulmonary disease (COPD) 6. Pulmonary HTN Plan: I personally reviewed his recent chest x-ray which shows evidence of chronic air trapping and no infiltrates or atelectasis. The heart borders are quite hazy on this AP radiograph.. Mr. Mathis has very severe chronic obstructive pulmonary disease with an element of reversibility suggesting an asthmatic component. However, he does have very severe heart disease and pulmonary hypertension secondary to LEFT ventricular diastolic dysfunction (World Health Organization group 2). With aggressive diuresis, he seems to improve somewhat. He complains of chest pain intermittently and, although he may not have significant coronary events, subtle changes in pulmonary artery pressure may cause anginal type pain. He is probably fairly volume sensitive, especially when the pressure is quite high. We will work on helping him with bronchodilator therapy and will try to get him into cardiopulmonary rehabilitation. He'll continue oxygen therapy as well for chronic respiratory failure due to his heart and lung disease. I will follow-up with him in about a week. Thank you for the opportunity to participate in his care. at 1414
[2017-02-09 16:00] VITALS: BP 144/76
--- NOTE | 2017-02-09 16:16 | DISCHARGE SUMMARY STANDARD ---
Demographics Admit date: 02/08/17 Discharge date: 02/09/17 History of present illness History of present illness 67-year-old white male with long history of coronary artery disease, recentcatheter-based intervention for chest pain with non-syncopal disease and ongoing COPD with pulmonary hypertensionwho presented to my office today for routine followup after his recent admission left heart catheterization. In the office he began to have substernal chest pain associate with nausea and retching. He was transferred to the emergency department where serial enzymes showed elevation in troponin levels from baseline after the second reading and he was admitted to hospital with diagnoses of non-stemi. Hospital Course Hospital Course: Patient was admitted to acute care with telemetry. Serial enzymes revealed an isolated elevated troponin and were NOT positive for myocardial infarction. Cardiology was consulted who agreed and felt his chest discomfort is likely related to COPD and Pulmonary HTN. Dr. Flood was consulted. He evaluated the patient and will follow him as an outpatient as he has not had any further discomfort since admission. Discharge home. Keep scheduled appointment with Cardiology and Pulmonology. FU with Dr. Goel in 1 week. Discharge diagnoses Problem List 1. Cardiomyopathy 2. Acute dyspnea 3. Chest pain 4. COPD (chronic obstructive pulmonary disease) 5. Acute exacerbation of chronic obstructive pulmonary disease (COPD) 6. Pulmonary HTN Medications Medications: Discharge meds are as noted. Follow up Follow up in office in: 7 DAYS with: Alexis Goel MD at [id number]
[2017-02-09 17:30] VITALS: BP 144/76
== END 2017-02-09 17:55 | disposition home or self-care (01) ==
LOC: ER 14:29 → 2ND 17:21 → ER 17:21 → 2ND 17:45
PROVIDERS: Emergency Medicine
DX: R07.9 Chest pain, unspecified (principal); J44.1 Chronic obstructive pulmonary disease with (acute) exacerbation; I10 Essential (primary) hypertension; R06.00 Dyspnea, unspecified; I27.2 Other secondary pulmonary hypertension; I42.9 Cardiomyopathy, unspecified; I25.10 Atherosclerotic heart disease of native coronary artery without angina pectoris
CPT/HCPCS: G0378

== ENCOUNTER → 2017-06-08 | Outpatient (CLI) | payer MEDICARE, BC ==
[~2017-06-08] MED LIST changes: +NITROGLYCERIN0.4 M1 SL; +TORSEMIDE20 M1 PO
[2017-06-08 09:45] LABS: HEMOGLOBIN 10.3 g/dL (14.1-18.0); LYMPH # 0.9 K/mm3 (0.7-4.5); LYMPH % 12.4 % (10-50)
[2017-06-08 09:59] LABS: BUN 23 mg/dL (7-18)
[2017-06-08 10:00] LABS: GFR (ESTIMATED) 55 ML/MIN (>60)
--- NOTE | 2017-06-08 14:04 | RADIOLOGY REPORT PS360 ---
CT ABD PELVIS W/ CONTRAST CLINICAL INDICATION: Diffuse abdominal pain ABD PAIN ORDERING PHYSICIAN: Jori Saldivar MD PATIENT AGE: 67 years COMPARISON: 05/11/2017 TECHNIQUE: Axial images obtained with sagittal and coronal reformats. PROCEDURE: Oral Contrast: Redicat IV Contrast: 75 mL's of Isovue 70. FINDINGS: Lower chest: There is a bilobular density which is developed in the left upper lobe centrally measuring 12 x 5 mm. This could represent neoplasm or an inflammatory nodule. Dedicated CT chest may be of further value. Abdomen pelvis: The liver, gallbladder, spleen, pancreas, and adrenal glands have an unremarkable appearance. No obstructing renal or ureteral calculi. There is a 4.4 cm cyst along the lower pole the left kidney. Hyperdensity is present within the appendix measuring 8 x 3 mm and could represent ingested material or an appendicolith. This was not present on the previous exam.. There is no evidence of appendicitis. No evidence of diverticulitis. No intestinal obstruction or free air. The prostate has a lobular appearance anteriorly and on the right with a defect in the prostate on the left anteriorly. No bladder stones. There is a small left inguinal hernia containing fat. No acute bony anomalies. IMPRESSION: 1. New lobular density in the mid aspect of the left upper lobe which could be neoplastic or postinflammatory. Consider chest CT to evaluate for other lesions. 2. No acute finding in the abdomen and pelvis with no significant change. 3. Incidental appendicolith and lobular appearance of the prostate 4. Small left femoral hernia containing fat
== END ==
LOC: RAD 09:35
PROVIDERS: Surgery
DX: R11.0 Nausea (principal); R10.84 Generalized abdominal pain
CPT/HCPCS: Q9967

== ENCOUNTER → 2017-06-18 | Outpatient (CLI) | payer MEDICARE, BC ==
--- NOTE | 2017-06-20 11:58 | RADIOLOGY REPORT PS360 ---
CT CHEST W/ CONTRAST INDICATION: COPD, follow-up abnormal chest CT LT UPPER LOBE ANOMALY ORDERING PHYSICIAN: Jori Saldivar MD PATIENT AGE: 67 years COMPARISON: 10/07/2016 TECHNIQUE: Axial images are obtained with 75 mL Isovue-370 IV . Sagittal and coronal reformatted images are reviewed as well. FINDINGS: No mediastinal or hilar mass is evident. Coronary artery stent noted. There is hyperinflation with attenuation of the peripheral pulmonary vessels and bronchial thickening consistent with obstructive chronic bronchitis. Scattered areas of pulmonary fibrosis present. Nodularity once again noted in the lingual region consistent with postinflammatory fibrosis which is not significantly changed. There is however, a new 12 x 10 mm noncalcified nodule within the left lower lobe anteriorly. Neoplasm is considered. Suggest PET/CT for further evaluation. This is NOT safely amenable to percutaneous CT directed biopsy. There is a calcified granuloma in the right lower lobe. No acute bony anomalies. Upper abdominal images are unremarkable. IMPRESSION: 1. Interval development of a 12 mm noncalcified nodule within the left lower lobe. Neoplasm is considered. Consider PET CT and pulmonology consult. 2. Obstructive chronic bronchitis with scattered areas of pulmonary fibrosis. 3. Coronary artery disease
== END ==
LOC: RAD 12:21
DX: R11.0 Nausea (principal); R10.84 Generalized abdominal pain
CPT/HCPCS: Q9967